=== PATIENT | male | born 1960 ===

== ENCOUNTER 2025-02-07 07:19 | Day surgery (SDC) | payer OTHER ==
[2025-02-05 10:35] VITALS: BP 150/83
[2025-02-05 10:47] LABS: URINE APPEARANCE Clear; URINE BILIRRUBIN Negative (NEGATIVE); URINE BLOOD Negative; URINE COLOR Yellow; URINE LEUKOCYTE Negative; URINE NITRATE Negative; URINE PROTEIN Negative (NEGATIVE); URINE UROBILINOGEN 0.2 E.U./dl
[2025-02-05 10:51] LABS: URINE BACTERIA 7.3 uL (0.0-1933); URINE WBC 4.1 uL (0.0-23.2)
[2025-02-05 11:17] LABS: INR 0.98; PARTIAL THROMBOPLASTIN TIME 25.8 SECONDS (22.0-34.0); PROTHROMBIN TIME 10.7 SECONDS (9.0-11.5)
[2025-02-05 11:19] LABS: URINE GLUCOSE 500 MG/DL (NEGATIVE); URINE KETONE 40 (NEGATIVE); URINE RBC 1.3 uL (0.0-20.8)
[2025-02-05 12:23] LABS: ALBUMIN 4.6 gm/dL (3.4-5.0); BILIRUBIN TOTAL 0.8 mg/dL (0.3-1.2); CALCIUM 9.4 mg/dL (8.5-10.1); CREATININE SERUM 0.85 mg/dL (0.70-1.30); GFR 90.75; GLOBULINA 2.9 G/DL (2.4-3.5); POTASSIUM 4.41 mEq/L (3.5-5.1); TOTAL PROTEIN 7.5 gm/dL (6.4-8.2)
[2025-02-05 15:22] LABS: BASO % 0.9 % (0.1-1.2); EOS # 0.22 (0.04-0.54); EOS % 4.1 % (0.7-7.0); HEMATOCRIT 45.1 % (40.1-51.0); HEMOGLOBIN 15.2 g/dL (13.7-17.5); LYMPH # 1.29 (1.18-3.74); MEAN CORPUSCULAR HEMOGLOBIN 30.5 pg (25.6-32.2); MONO # 0.39 (0.24-0.82); MONO % 7.2 % (4.7-12.5); NEUT # 3.42 (1.56-6.13); NEUT % 63.6 % (34.0-71.1); PLATELET COUNT 205 K/uL (163-369); RED BLOOD COUNT 4.99 M/uL (4.63-6.08); RED CELL DISTRIBUTION WIDTH 12.7 % (11.6-14.4)
[~2025-02-07] VITALS: Ht 162.6 cm; Wt 69.9 kg
[~2025-02-07 07:19] MED LIST: METFORMIN HCL1000 M2 PO; ZESTRIL20 MG PO
[2025-02-07] MEDS ORDERED: CEFAZOLIN SODIUM 1,000 MG VIAL ONE (09:08)
[2025-02-07] MEDS ORDERED: HYDROGEN PEROXIDE 473 ML BOTTLE TOP ONE (11:11)
[2025-02-07] MEDS ORDERED: TYLENOL325 MG PO (12:11)
[2025-02-07] MEDS ORDERED: BACTRIM DS TAB1 EACH PO (12:11)
== END 2025-02-07 13:20 | disposition home or self-care (01) ==
LOC: CIR.AMB 07:19
PROVIDERS: ATTEND Surgery
DX: D21.6 Benign neoplasm of connective and other soft tissue of trunk, unspecified (principal); D49.2 Neoplasm of unspecified behavior of bone, soft tissue, and skin; Z88.5 Allergy status to narcotic agent